=== PATIENT | male | born 1970 | race Caucasian/White ===

== ENCOUNTER 2017-11-15 17:54 | Inpatient (IN) | payer MEDICARE, OTHER ==
[~2017-11-15] VITALS: Ht 177.8 cm; Wt 82.5 kg
[~2017-11-15 17:54] MED LIST: ALBU6.7H INH; ALPR-624 PO; CARV25TA PO; CINA60TA PO; DARB10SY IV; DOXE1CAP2 IV; DULO30CA51 PO; FLUT1DIS4 INH; FURO80TA87 PO; HYDR-4069 PO; HYDR-565 PO; IRON100V2 IV; PRED5TAB PO; SEVE800T8 PO; TACR0.5C20 PO
[2017-11-15] MEDS ORDERED: HYDROcodone/acetaminophen 5mg/325mg tablet PO ONE (19:40)
[2017-11-15 19:46] LABS: BASOPHILS % (AUTO) 0.2 % (0-1); EOSINOPHILS # (AUTO) 0.2 X10'3 (0-0.9); EOSINOPHILS % (AUTO) 1.1 % (0-6); HEMATOCRIT 40.6 % (42.0-52.0); HEMOGLOBIN 13.1 g/dl (14.0-17.9); LYMPHOCYTES # (AUTO) 1.1 X10'3 (1.1-4.8); MEAN CORPUSCULAR HGB CONC 32.4 % (33.0-36.5); MEAN CORPUSCULAR VOLUME 95.7 FL (78-98); MONOCYTES # (AUTO) 0.8 X10'3 (0-0.9); MONOCYTES % (AUTO) 5.2 % (2-12); NEUTROPHILS # (AUTO) 13.1 X10'3 (1.8-7.7); NEUTROPHILS % (AUTO) 86.5 % (42-75); PLATELET COUNT 208 X10'3 (140-440); RED BLOOD COUNT 4.24 X10'6 (4.70-6.10); RED CELL DISTRIBUTION WIDTH 18.9 % (11.5-14.5); WHITE BLOOD COUNT 15.2 X10'3 (4.5-11.0)
[2017-11-15 20:01] LABS: ALANINE AMINOTRANSFERASE 19 U/L (12-78); ALBUMIN 3.5 G/DL (3.4-5.0); ALBUMIN/GLOBULIN RATIO 0.7 (1.1-1.5); ALKALINE PHOSPHATASE 237 IU/L (46-116); ANION GAP 11 (8-16); ASPARTATE AMINO TRANSFERASE 19 U/L (10-37); BILIRUBIN,TOTAL 1.4 MG/DL (0.1-1.0); BLOOD UREA NITROGEN 51 MG/DL (7-18); BUN/CREATININE RATIO 7.6 (5.4-32.0); CALCIUM 8.8 MG/DL (8.5-10.1); CHLORIDE 97 MMOL/L (99-107); GLUCOSE 118 MG/DL (70-104); POTASSIUM 4.6 MMOL/L (3.5-5.1); SODIUM 138 MMOL/L (135-145); TOTAL CARBON DIOXIDE 29.8 MMOL/L (24-32); TOTAL PROTEIN 8.2 G/DL (6.4-8.2); eGFR 9 ML/MIN
[2017-11-15] MEDS ORDERED: levoFLOXACIN-Levaquin 500mg/D5 100 ML IV ONE (20:20)
[2017-11-15 20:38] LABS: CLARITY,URINE CLEAR (Clear); COLOR,URINE YELLOW (Yellow); GLUCOSE, URINE 100 mg/dl (Neg); KETONES,URINE NEGATIVE (Neg); LEUKOCYTE ESTERASE ,URINE NEGATIVE (Neg); NITRITES, URINE NEGATIVE (Neg); OCCULT BLOOD,URINE SMALL (Neg); PH,URINE 8.5 (4.8-8.0); PROTEIN,URINE >=300 mg/dl (Neg); UROBILINOGEN,URINE 0.2 E.U/dL (0.2-1.0)
[2017-11-15 20:45] LABS: URINE AMPHETAMINE SCREEN NEGATIVE (Neg); URINE BARBITUATE SCREEN NEGATIVE (Neg); URINE BENZODIAZEPINES SCREEN POSITIVE (Neg); URINE CANNABINOID SCREEN NEGATIVE (Neg); URINE COCAINE SCREEN NEGATIVE (Neg); URINE METHADONE SCREEN NEGATIVE (Neg); URINE OPIATE SCREEN POSITIVE (Neg); URINE PHENCYCLIDINE SCREEN NEGATIVE (Neg)
[2017-11-15 20:46] LABS: UA COLLECTION TYPE CLN CATCH MIDSTREAM
[2017-11-15 20:47] LABS: BACTERIA,URINE FEW /HPF (Neg); RBC,URINE 0-2 /HPF (0-2); SQUAMOUS EPITHELIAL CELL,UR FEW /LPF (FEW); WBC,URINE 0-4 /HPF (0-4)
[2017-11-15] MEDS ORDERED: ondansetron/PF 4mg/2ml inj IV ONE (21:15)
[2017-11-15] MEDS ORDERED: levoFLOXACIN-Levaquin 500mg/D5 100 ML IV STA (21:15)
[2017-11-15] MEDS ORDERED: HYDROmorphone 1 mg/ml syringe IV PRN (22:50)
[2017-11-15] MEDS ORDERED: vancomycin/NS 1 GM ADD-VANTAGE 250 ML IV STA (22:50)
[2017-11-15] MEDS: piperacillin-tazo 2.25gm/50ml 50 ML IV SCH (23:37)
[2017-11-16] MEDS ORDERED: ondansetron/PF 4mg/2ml inj IV ONE (01:05)
[2017-11-16] MEDS ORDERED: [UNRECOGNIZED DRUG - OTHER] IV SCH (03:50)
[2017-11-16] MEDS ORDERED: DOXERCALCIFEROL 1 MCG IV SCH (03:50)
[2017-11-16] MEDS ORDERED: DARBEPOETIN ALFA IV SCH (03:50)
[2017-11-16] MEDS ORDERED: IRON SUCROSE COMPLEX IV SCH (03:50)
[2017-11-16] MEDS ORDERED: COU3T PO (04:36)
[2017-11-16] MEDS ORDERED: MIDO2.5T14 PO (04:36)
[2017-11-16] MEDS ORDERED: ONDA4TAB12 PO (04:36)
[2017-11-16] MEDS ORDERED: ATOR40TA72 (04:36)
[2017-11-16] MEDS ORDERED: CLOP75TA35 PO (04:36)
[2017-11-16] MEDS ORDERED: HYDROmorphone inj. 0.5 MG/0.5 ML DISP.SYRIN ONE (04:44)
[2017-11-16 06:52] LABS: BASOPHILS % (AUTO) 0.3 % (0-1); EOSINOPHILS # (AUTO) 0.2 X10'3 (0-0.9); EOSINOPHILS % (AUTO) 1.4 % (0-6); HEMATOCRIT 36.7 % (42.0-52.0); HEMOGLOBIN 12.1 g/dl (14.0-17.9); LYMPHOCYTES # (AUTO) 1.6 X10'3 (1.1-4.8); LYMPHOCYTES % (AUTO) 12.6 % (21-51); MEAN CORPUSCULAR HEMOGLOBIN 31.6 PG (27.0-31.0); MEAN CORPUSCULAR VOLUME 95.8 FL (78-98); MEAN PLATELET VOLUME 7.8 FL (7.4-10.4); MONOCYTES % (AUTO) 7.6 % (2-12); NEUTROPHILS # (AUTO) 10.2 X10'3 (1.8-7.7); NEUTROPHILS % (AUTO) 78.1 % (42-75); PLATELET COUNT 160 X10'3 (140-440); RED BLOOD COUNT 3.84 X10'6 (4.70-6.10); RED CELL DISTRIBUTION WIDTH 17.9 % (11.5-14.5)
[2017-11-16 07:03] LABS: INR 1.5 INR; PARTIAL THROMBOPLASTIN TIME 34 SECONDS (22-32); PROTHROMBIN TIME 15.7 SECONDS (9.0-12.0)
[2017-11-16 07:10] LABS: ALANINE AMINOTRANSFERASE 18 U/L (12-78); ALBUMIN 3.1 G/DL (3.4-5.0); ALBUMIN/GLOBULIN RATIO 0.7 (1.1-1.5); ALKALINE PHOSPHATASE 205 IU/L (46-116); ANION GAP 13 (8-16); ASPARTATE AMINO TRANSFERASE 17 U/L (10-37); BILIRUBIN,TOTAL 1.5 MG/DL (0.1-1.0); BLOOD UREA NITROGEN 57 MG/DL (7-18); BUN/CREATININE RATIO 7.9 (5.4-32.0); CALCIUM 8.6 MG/DL (8.5-10.1); CHLORIDE 97 MMOL/L (99-107); GLUCOSE 100 MG/DL (70-104); MAGNESIUM 1.7 MG/DL (1.5-2.4); PHOSPHORUS 6.7 MG/DL (2.3-4.5); POTASSIUM 4.7 MMOL/L (3.5-5.1); SODIUM 138 MMOL/L (135-145); TOTAL CARBON DIOXIDE 27.8 MMOL/L (24-32); TOTAL PROTEIN 7.5 G/DL (6.4-8.2); eGFR 8 ML/MIN
[2017-11-16 07:25] VITALS: BP 122/78
[2017-11-16] MEDS ORDERED: ALPRAZolam 0.5mg tablet PO SCH (08:00)
[2017-11-16] MEDS: ondansetron/PF 4mg/2ml inj IV PRN (09:02)
[2017-11-16] MEDS: cinacalcet 30mg tablet PO SCH (09:55)
[2017-11-16] MEDS: carVEDilol 12.5mg tablet PO SCH ×2 (09:58→19:31)
[2017-11-16] MEDS: furosemide 40mg tablet PO SCH ×3 (09:59→19:40)
[2017-11-16] MEDS: predniSONE 5mg tablet PO SCH (10:00)
[2017-11-16] MEDS: tacrolimus anhydrous 0.5mg capsule PO SCH ×3 (10:01→19:36)
[2017-11-16] MEDS: sevelamer carbonate 800mg tablet PO SCH ×3 (10:02→19:01)
[2017-11-16] MEDS: heparin, porcine 5000 units/ml vial SQ SCH ×2 (10:07→19:35)
[2017-11-16] MEDS: HYDROcodone/acetaminophen 10/325mg tab PO PRN (10:08)
[2017-11-16] MEDS: piperacillin-tazo 2.25gm/50ml 50 ML IV SCH ×4 (10:24→23:20)
[2017-11-16] MEDS: hydrALAZINE 25 MG tablet PO SCH ×3 (10:24→19:37)
[2017-11-16 11:00] VITALS: BP 109/70
[2017-11-16] MEDS: duloxetine 30mg CAPSULE.DR PO SCH (12:21)
[2017-11-16] MEDS ORDERED: ALPRAZolam 0.5mg tablet PO PRN (13:33)
[2017-11-16 15:00] VITALS: BP 91/55
[2017-11-16 18:50] VITALS: BP 92/55
[2017-11-16 23:00] VITALS: BP 88/55
[2017-11-17 02:00] VITALS: BP 93/62
[2017-11-17] MEDS: piperacillin-tazo 2.25gm/50ml 50 ML IV SCH ×3 (05:32→20:00)
[2017-11-17 05:33] LABS: BASOPHILS % (AUTO) 0.2 % (0-1); EOSINOPHILS # (AUTO) 0.2 X10'3 (0-0.9); EOSINOPHILS % (AUTO) 1.6 % (0-6); HEMATOCRIT 34.8 % (42.0-52.0); HEMOGLOBIN 11.4 g/dl (14.0-17.9); LYMPHOCYTES # (AUTO) 0.8 X10'3 (1.1-4.8); LYMPHOCYTES % (AUTO) 8.4 % (21-51); MEAN CORPUSCULAR HGB CONC 32.7 % (33.0-36.5); MEAN CORPUSCULAR VOLUME 94.6 FL (78-98); MEAN PLATELET VOLUME 8.2 FL (7.4-10.4); MONOCYTES # (AUTO) 0.6 X10'3 (0-0.9); MONOCYTES % (AUTO) 6.5 % (2-12); NEUTROPHILS # (AUTO) 8.1 X10'3 (1.8-7.7); NEUTROPHILS % (AUTO) 83.3 % (42-75); PLATELET COUNT 152 X10'3 (140-440); RED BLOOD COUNT 3.68 X10'6 (4.70-6.10); RED CELL DISTRIBUTION WIDTH 18.3 % (11.5-14.5); WHITE BLOOD COUNT 9.7 X10'3 (4.5-11.0)
[2017-11-17 05:49] LABS: INR 1.5 INR; PARTIAL THROMBOPLASTIN TIME 34 SECONDS (22-32); PROTHROMBIN TIME 15.8 SECONDS (9.0-12.0)
[2017-11-17 06:00] VITALS: BP 96/65
[2017-11-17 06:01] LABS: ALANINE AMINOTRANSFERASE 15 U/L (12-78); ALBUMIN 2.3 G/DL (3.4-5.0); ALBUMIN/GLOBULIN RATIO 0.6 (1.1-1.5); ALKALINE PHOSPHATASE 148 IU/L (46-116); ANION GAP 14 (8-16); ASPARTATE AMINO TRANSFERASE 16 U/L (10-37); BILIRUBIN,TOTAL 0.9 MG/DL (0.1-1.0); BLOOD UREA NITROGEN 83 MG/DL (7-18); BUN/CREATININE RATIO 9.5 (5.4-32.0); CALCIUM 7.6 MG/DL (8.5-10.1); CHLORIDE 97 MMOL/L (99-107); GLUCOSE 130 MG/DL (70-104); MAGNESIUM 1.6 MG/DL (1.5-2.4); PHOSPHORUS 8.3 MG/DL (2.3-4.5); SODIUM 138 MMOL/L (135-145); TOTAL CARBON DIOXIDE 27.2 MMOL/L (24-32); TOTAL PROTEIN 6.1 G/DL (6.4-8.2); eGFR 7 ML/MIN
[2017-11-17] MEDS: cinacalcet 30mg tablet PO SCH (07:00)
[2017-11-17] MEDS ORDERED: LIDOcaine 1% (10mg/ml) 2ml vial SQ ONE (07:00)
[2017-11-17] MEDS: hydrALAZINE 25 MG tablet PO SCH ×2 (07:29→13:00)
[2017-11-17] MEDS: carVEDilol 12.5mg tablet PO SCH ×2 (07:29→20:00)
[2017-11-17] MEDS: duloxetine 30mg CAPSULE.DR PO SCH (07:30)
[2017-11-17] MEDS: clopidogrel 75mg tablet PO SCH (07:31)
[2017-11-17] MEDS: furosemide 40mg tablet PO SCH ×3 (07:31→21:00)
[2017-11-17] MEDS: predniSONE 5mg tablet PO SCH (07:33)
[2017-11-17] MEDS: heparin, porcine 5000 units/ml vial SQ SCH ×2 (07:34→20:00)
[2017-11-17] MEDS: sevelamer carbonate 800mg tablet PO SCH ×3 (07:34→18:42)
[2017-11-17] MEDS: HYDROcodone/acetaminophen 10/325mg tab PO PRN ×2 (07:35→15:54)
[2017-11-17] MEDS: tacrolimus anhydrous 0.5mg capsule PO SCH (07:38)
[2017-11-17] MEDS ORDERED: heparin 1,000 units/ml 10ml inj IV ONE (08:00)
[2017-11-17] MEDS ORDERED: heparin 1,000unit/ml 10ml vial 10 ML IV ONE (08:00)
[2017-11-17] MEDS ORDERED: albumin (human) 25% 100ml IV 100 ML IV PRN (08:00)
[2017-11-17 11:00] VITALS: BP 102/68
[2017-11-17 15:00] VITALS: BP 104/67
[2017-11-17] MEDS: lactobacillus rhamnosus 10,000 MMU CELLS/CAPSULE PO SCH (17:34)
[2017-11-17 18:00] VITALS: BP 121/85
[2017-11-17] MEDS: ondansetron/PF 4mg/2ml inj IV PRN (20:13)
[2017-11-17] MEDS ORDERED: warfarin 3mg tablet PO SCH (21:00)
[2017-11-17 22:00] VITALS: BP 119/71
[2017-11-18 02:00] VITALS: BP 121/94
[2017-11-18] MEDS: piperacillin-tazo 2.25gm/50ml 50 ML IV SCH ×4 (02:00→14:00)
[2017-11-18 06:00] VITALS: BP 116/83
[2017-11-18 06:03] LABS: BASOPHILS % (AUTO) 0.1 % (0-1); EOSINOPHILS # (AUTO) 0.2 X10'3 (0-0.9); EOSINOPHILS % (AUTO) 2.3 % (0-6); HEMATOCRIT 35.6 % (42.0-52.0); HEMOGLOBIN 11.9 g/dl (14.0-17.9); LYMPHOCYTES % (AUTO) 12.6 % (21-51); MEAN CORPUSCULAR HEMOGLOBIN 31.3 PG (27.0-31.0); MEAN CORPUSCULAR HGB CONC 33.4 % (33.0-36.5); MEAN CORPUSCULAR VOLUME 93.8 FL (78-98); MEAN PLATELET VOLUME 7.8 FL (7.4-10.4); MONOCYTES # (AUTO) 0.5 X10'3 (0-0.9); MONOCYTES % (AUTO) 6.3 % (2-12); NEUTROPHILS # (AUTO) 6.3 X10'3 (1.8-7.7); NEUTROPHILS % (AUTO) 78.7 % (42-75); PLATELET COUNT 184 X10'3 (140-440); RED BLOOD COUNT 3.79 X10'6 (4.70-6.10); RED CELL DISTRIBUTION WIDTH 17.9 % (11.5-14.5)
[2017-11-18 06:20] LABS: INR 1.5 INR; PARTIAL THROMBOPLASTIN TIME 33 SECONDS (22-32); PROTHROMBIN TIME 14.9 SECONDS (9.0-12.0)
[2017-11-18 06:28] LABS: ALANINE AMINOTRANSFERASE 17 U/L (12-78); ALBUMIN 2.5 G/DL (3.4-5.0); ALBUMIN/GLOBULIN RATIO 0.6 (1.1-1.5); ALKALINE PHOSPHATASE 167 IU/L (46-116); ANION GAP 14 (8-16); ASPARTATE AMINO TRANSFERASE 16 U/L (10-37); BILIRUBIN,TOTAL 0.8 MG/DL (0.1-1.0); BLOOD UREA NITROGEN 48 MG/DL (7-18); BUN/CREATININE RATIO 7.4 (5.4-32.0); CALCIUM 7.9 MG/DL (8.5-10.1); CHLORIDE 99 MMOL/L (99-107); GLUCOSE 114 MG/DL (70-104); MAGNESIUM 1.8 MG/DL (1.5-2.4); PHOSPHORUS 6.2 MG/DL (2.3-4.5); SODIUM 141 MMOL/L (135-145); TOTAL CARBON DIOXIDE 28.2 MMOL/L (24-32); TOTAL PROTEIN 6.5 G/DL (6.4-8.2); eGFR 9 ML/MIN
[2017-11-18] MEDS: cinacalcet 30mg tablet PO SCH (07:00)
[2017-11-18] MEDS: duloxetine 30mg CAPSULE.DR PO SCH (07:38)
[2017-11-18] MEDS: carVEDilol 12.5mg tablet PO SCH (07:39)
[2017-11-18] MEDS: furosemide 40mg tablet PO SCH ×2 (07:39→12:46)
[2017-11-18] MEDS: predniSONE 5mg tablet PO SCH (07:40)
[2017-11-18] MEDS: lactobacillus rhamnosus 10,000 MMU CELLS/CAPSULE PO SCH (07:40)
[2017-11-18] MEDS: clopidogrel 75mg tablet PO SCH (07:41)
[2017-11-18] MEDS: heparin, porcine 5000 units/ml vial SQ SCH (07:41)
[2017-11-18] MEDS: sevelamer carbonate 800mg tablet PO SCH ×2 (07:43→12:46)
[2017-11-18 07:52] VITALS: BP 108/74
[2017-11-18] MEDS ORDERED: tacrolimus anhydrous 0.5mg capsule PO SCH (08:00)
[2017-11-18 11:00] VITALS: BP 99/68
[2017-11-18 15:00] VITALS: BP 106/63
== END 2017-11-18 16:40 | disposition home or self-care (01) | DRG 871 ==
LOC: ER 17:54 → ED HOLD 22:50 → PCU 3S 11-16 07:15
PROVIDERS: ATTEND Internal Medicine Critical Care Medicine
PROC: 5A1D70Z Performance of Urinary Filtration, Intermittent, Less than 6 Hours Per Day (ICD-10-PCS; principal; 2017-11-17)
DX: A41.9 Sepsis, unspecified organism (principal); J18.1 Lobar pneumonia, unspecified organism; I13.2 Hypertensive heart and chronic kidney disease with heart failure and with stage 5 chronic kidney disease, or end stage renal disease; N18.6 End stage renal disease; I42.9 Cardiomyopathy, unspecified; E22.2 Syndrome of inappropriate secretion of antidiuretic hormone; I50.22 Chronic systolic (congestive) heart failure; I48.0 Paroxysmal atrial fibrillation; Q61.3 Polycystic kidney, unspecified; Q44.6 Cystic disease of liver; J44.0 Chronic obstructive pulmonary disease with (acute) lower respiratory infection; Z94.0 Kidney transplant status; L03.114 Cellulitis of left upper limb; G89.29 Other chronic pain; I25.10 Atherosclerotic heart disease of native coronary artery without angina pectoris; F41.9 Anxiety disorder, unspecified; T22.012A Burn of unspecified degree of left forearm, initial encounter; Z95.5 Presence of coronary angioplasty implant and graft; Z99.2 Dependence on renal dialysis; Z79.899 Other long term (current) drug therapy; Z82.5 Family history of asthma and other chronic lower respiratory diseases
CPT/HCPCS: 36415; 71045; 80053; 80305; 81001; 82948; 83605; 83735; 83880; 84100; 85025; 85610; 85730; 87040; 87070; 93306; 94640; 94760; 96365; 96375; 97116; 97161; 97530; 99285; A6222; A6223; A6402; A6446; A6449; G0257; J1170; J1644; J1956; J2405; J2543; J3370; J3490; J7030; J7507; J7512

== ENCOUNTER 2018-01-03 18:08 | Inpatient (IN) | payer MEDICARE, MEDICAID ==
[~2018-01-03] VITALS: Ht 177.8 cm; Wt 85.0 kg
[~2018-01-03 18:08] MED LIST changes: +ATOR40TA72; +CLOP75TA35 PO; +COU3T PO; -FURO80TA87 PO; -HYDR-4069 PO; +MIDO2.5T14 PO; +ONDA4TAB12 PO
[2018-01-03] MEDS ORDERED: vancomycin inj 1,000 MG in normal saline 250ml IV soln 250 ML IV STA (19:14)
[2018-01-03] MEDS ORDERED: cefepime 1GM/NS ADD-VANTAGE 100 ML IV ONE (19:15)
[2018-01-03 19:22] LABS: BASOPHILS # (AUTO) 0.1 X10'3 (0-0.2); BASOPHILS % (AUTO) 0.8 % (0-1); EOSINOPHILS % (AUTO) 0 % (0-6); HEMATOCRIT 34.8 % (42.0-52.0); HEMOGLOBIN 11.5 g/dl (14.0-17.9); LYMPHOCYTES # (AUTO) 0.5 X10'3 (1.1-4.8); LYMPHOCYTES % (AUTO) 6.1 % (21-51); MEAN CORPUSCULAR HEMOGLOBIN 31.9 PG (27.0-31.0); MEAN CORPUSCULAR HGB CONC 32.9 % (33.0-36.5); MONOCYTES # (AUTO) 0.5 X10'3 (0-0.9); MONOCYTES % (AUTO) 6.5 % (2-12); NEUTROPHILS # (AUTO) 6.9 X10'3 (1.8-7.7); NEUTROPHILS % (AUTO) 86.6 % (42-75); PLATELET COUNT 142 X10'3 (140-440); RED BLOOD COUNT 3.59 X10'6 (4.70-6.10); RED CELL DISTRIBUTION WIDTH 17.8 % (11.5-14.5)
[2018-01-03 19:34] LABS: INR 1.8 INR; PROTHROMBIN TIME 18.3 SECONDS (9.0-12.0)
[2018-01-03 19:39] LABS: ALANINE AMINOTRANSFERASE 18 U/L (12-78); ALBUMIN 3.1 G/DL (3.4-5.0); ALBUMIN/GLOBULIN RATIO 0.6 (1.1-1.5); ALKALINE PHOSPHATASE 145 IU/L (46-116); ANION GAP 10 (8-16); ASPARTATE AMINO TRANSFERASE 20 U/L (10-37); BILIRUBIN,TOTAL 1.4 MG/DL (0.1-1.0); BLOOD UREA NITROGEN 38 MG/DL (7-18); BUN/CREATININE RATIO 5.4 (5.4-32.0); CALCIUM 8.2 MG/DL (8.5-10.1); CHLORIDE 98 MMOL/L (99-107); CREATININE 7.09 MG/DL (0.60-1.10); GLUCOSE 127 MG/DL (70-104); POTASSIUM 4.6 MMOL/L (3.5-5.1); SODIUM 136 MMOL/L (135-145); TOTAL CARBON DIOXIDE 28.4 MMOL/L (24-32); TOTAL PROTEIN 7.9 G/DL (6.4-8.2); eGFR 8 ML/MIN
[2018-01-03] MEDS ORDERED: vancomycin/NS 1 GM ADD-VANTAGE 250 ML IV ONE (19:45)
[2018-01-03] MEDS ORDERED: mag hydrox/Alum hydrox/simeth 30ml oral suspension PO PRN (20:30)
[2018-01-03] MEDS ORDERED: ondansetron/PF 4mg/2ml inj IV PRN (20:30)
[2018-01-03] MEDS ORDERED: acetaminophen 325mg tablet PO PRN ×2 (20:30)
[2018-01-03] MEDS ORDERED: magnesium hydroxide 30ml (MOM) UD suspension PO PRN (20:30)
[2018-01-03] MEDS ORDERED: HYDROcodone/acetaminophen 5mg/325mg tablet PO PRN (20:30)
[2018-01-03] MEDS ORDERED: [UNRECOGNIZED DRUG - OTHER] IV SCH (20:40)
[2018-01-03] MEDS ORDERED: IRON SUCROSE COMPLEX IV SCH (20:40)
[2018-01-03] MEDS ORDERED: DOXERCALCIFEROL 1 MCG IV SCH (20:40)
[2018-01-03] MEDS ORDERED: DARBEPOETIN ALFA IV SCH (20:40)
[2018-01-03] MEDS: normal saline 1000ml 1,000 ML IV SCH (20:50)
[2018-01-03] MEDS ORDERED: albuterol 2.5 MG/3 ML nebule NEB PRN (20:55)
[2018-01-03] MEDS: HYDROcodone/acetaminophen 10/325mg tab PO PRN (23:36)
[2018-01-03] MEDS: midodrine tablet 2.5 MG TABLET PO SCH (23:36)
[2018-01-04] VITALS: BP 108/70
[2018-01-04] MEDS: normal saline 1000ml 1,000 ML IV SCH ×3 (01:35→15:12)
[2018-01-04] MEDS ORDERED: clindamycin 600mg/D5W 50ml 50 ML IV SCH (02:00)
[2018-01-04 05:42] LABS: BASOPHILS % (AUTO) 0.3 % (0-1); EOSINOPHILS # (AUTO) 0.1 X10'3 (0-0.9); EOSINOPHILS % (AUTO) 1.9 % (0-6); HEMATOCRIT 32.8 % (42.0-52.0); HEMOGLOBIN 10.6 g/dl (14.0-17.9); LYMPHOCYTES # (AUTO) 0.9 X10'3 (1.1-4.8); LYMPHOCYTES % (AUTO) 12.8 % (21-51); MEAN CORPUSCULAR HEMOGLOBIN 31.9 PG (27.0-31.0); MEAN CORPUSCULAR HGB CONC 32.3 % (33.0-36.5); MEAN CORPUSCULAR VOLUME 98.6 FL (78-98); MEAN PLATELET VOLUME 8.3 FL (7.4-10.4); MONOCYTES # (AUTO) 0.5 X10'3 (0-0.9); MONOCYTES % (AUTO) 7.8 % (2-12); NEUTROPHILS # (AUTO) 5.3 X10'3 (1.8-7.7); NEUTROPHILS % (AUTO) 77.2 % (42-75); PLATELET COUNT 130 X10'3 (140-440); RED BLOOD COUNT 3.33 X10'6 (4.70-6.10); RED CELL DISTRIBUTION WIDTH 18.3 % (11.5-14.5); WHITE BLOOD COUNT 6.9 X10'3 (4.5-11.0)
[2018-01-04 05:48] LABS: INR 1.8 INR; PROTHROMBIN TIME 18.7 SECONDS (9.0-12.0)
[2018-01-04 05:57] LABS: ALANINE AMINOTRANSFERASE 15 U/L (12-78); ALBUMIN 2.6 G/DL (3.4-5.0); ALBUMIN/GLOBULIN RATIO 0.6 (1.1-1.5); ALKALINE PHOSPHATASE 121 IU/L (46-116); ANION GAP 10 (8-16); ASPARTATE AMINO TRANSFERASE 17 U/L (10-37); BILIRUBIN,TOTAL 1.1 MG/DL (0.1-1.0); BLOOD UREA NITROGEN 43 MG/DL (7-18); BUN/CREATININE RATIO 5.7 (5.4-32.0); CALCIUM 7.8 MG/DL (8.5-10.1); CHLORIDE 100 MMOL/L (99-107); CREATININE 7.55 MG/DL (0.60-1.10); GLUCOSE 111 MG/DL (70-104); MAGNESIUM 1.8 MG/DL (1.5-2.4); POTASSIUM 4.1 MMOL/L (3.5-5.1); SODIUM 139 MMOL/L (135-145); TOTAL CARBON DIOXIDE 29.4 MMOL/L (24-32); TOTAL PROTEIN 6.7 G/DL (6.4-8.2); eGFR 8 ML/MIN
[2018-01-04] MEDS: cinacalcet 30mg tablet PO SCH ×2 (07:00→18:50)
[2018-01-04] MEDS: heparin 1,000 units/ml 10ml inj IV ONE (07:30)
[2018-01-04] MEDS: heparin 1,000unit/ml 10ml vial 10 ML IV ONE (07:30)
[2018-01-04] MEDS ORDERED: albumin (human) 25% 100ml IV 100 ML IV PRN (07:30)
[2018-01-04 07:50] VITALS: BP 109/70
[2018-01-04] MEDS: sevelamer carbonate 800mg tablet PO SCH ×3 (08:36→17:59)
[2018-01-04] MEDS: tacrolimus anhydrous 0.5mg capsule PO SCH (08:37)
[2018-01-04] MEDS: carVEDilol 12.5mg tablet PO SCH ×2 (08:38→20:00)
[2018-01-04] MEDS: duloxetine 30mg CAPSULE.DR PO SCH (08:38)
[2018-01-04] MEDS: clopidogrel 75mg tablet PO SCH (08:38)
[2018-01-04] MEDS: midodrine tablet 2.5 MG TABLET PO SCH ×3 (08:39→23:58)
[2018-01-04] MEDS: predniSONE 5mg tablet PO SCH (08:39)
[2018-01-04] MEDS: piperacillin-tazo 2.25gm/50ml 50 ML IV SCH ×3 (08:45→21:22)
[2018-01-04] MEDS ORDERED: LIDOcaine 1% (10mg/ml) 2ml vial SQ ONE (10:35)
[2018-01-04 12:06] VITALS: BP 98/60
[2018-01-04] MEDS: HYDROcodone/acetaminophen 10/325mg tab PO PRN (15:19)
[2018-01-04] MEDS ORDERED: SEVE800T8 PO (16:20)
[2018-01-04] MEDS ORDERED: FOLI0.8T19 PO (16:20)
[2018-01-04 20:00] VITALS: BP 100/64
[2018-01-04] MEDS: warfarin 3mg tablet PO SCH (21:22)
[2018-01-04] MEDS: lactobacillus rhamnosus 10,000 MMU CELLS/CAPSULE PO SCH (21:22)
[2018-01-05] VITALS: BP 102/76
[2018-01-05] MEDS: piperacillin-tazo 2.25gm/50ml 50 ML IV SCH ×4 (02:18→20:39)
[2018-01-05] MEDS: VANCOMYCIN LEVEL IV SCH (03:51)
[2018-01-05 05:33] LABS: BASOPHILS % (AUTO) 0.3 % (0-1); EOSINOPHILS # (AUTO) 0.2 X10'3 (0-0.9); HEMATOCRIT 35.5 % (42.0-52.0); HEMOGLOBIN 11.8 g/dl (14.0-17.9); LYMPHOCYTES # (AUTO) 0.8 X10'3 (1.1-4.8); LYMPHOCYTES % (AUTO) 11.3 % (21-51); MEAN CORPUSCULAR HEMOGLOBIN 32.2 PG (27.0-31.0); MEAN CORPUSCULAR HGB CONC 33.1 % (33.0-36.5); MEAN CORPUSCULAR VOLUME 97.3 FL (78-98); MEAN PLATELET VOLUME 7.9 FL (7.4-10.4); MONOCYTES # (AUTO) 0.6 X10'3 (0-0.9); NEUTROPHILS # (AUTO) 5.8 X10'3 (1.8-7.7); NEUTROPHILS % (AUTO) 77.4 % (42-75); PLATELET COUNT 176 X10'3 (140-440); RED BLOOD COUNT 3.65 X10'6 (4.70-6.10); RED CELL DISTRIBUTION WIDTH 18.2 % (11.5-14.5); WHITE BLOOD COUNT 7.5 X10'3 (4.5-11.0)
[2018-01-05 05:43] LABS: INR 1.9 INR; PROTHROMBIN TIME 19.5 SECONDS (9.0-12.0)
[2018-01-05 05:51] LABS: ALANINE AMINOTRANSFERASE 17 U/L (12-78); ALBUMIN 2.6 G/DL (3.4-5.0); ALBUMIN/GLOBULIN RATIO 0.6 (1.1-1.5); ALKALINE PHOSPHATASE 127 IU/L (46-116); ANION GAP 9 (8-16); ASPARTATE AMINO TRANSFERASE 15 U/L (10-37); BILIRUBIN,TOTAL 1.1 MG/DL (0.1-1.0); BLOOD UREA NITROGEN 32 MG/DL (7-18); BUN/CREATININE RATIO 5.5 (5.4-32.0); CALCIUM 7.9 MG/DL (8.5-10.1); CHLORIDE 100 MMOL/L (99-107); CREATININE 5.77 MG/DL (0.60-1.10); GLUCOSE 77 MG/DL (70-104); MAGNESIUM 1.7 MG/DL (1.5-2.4); PHOSPHORUS 4.3 MG/DL (2.3-4.5); POTASSIUM 4.1 MMOL/L (3.5-5.1); SODIUM 140 MMOL/L (135-145); TOTAL CARBON DIOXIDE 30.7 MMOL/L (24-32); TOTAL PROTEIN 6.8 G/DL (6.4-8.2); VANCOMYCIN,RANDOM 10.2 UG/ML; eGFR 11 ML/MIN
[2018-01-05 07:00] VITALS: BP 130/79
[2018-01-05] MEDS ORDERED: vancomycin/NS 1 GM ADD-VANTAGE 250 ML IV PRN (08:00)
[2018-01-05] MEDS: lactobacillus rhamnosus 10,000 MMU CELLS/CAPSULE PO SCH ×2 (08:38→20:39)
[2018-01-05] MEDS: duloxetine 30mg CAPSULE.DR PO SCH (08:38)
[2018-01-05] MEDS: cinacalcet 30mg tablet PO SCH (08:38)
[2018-01-05] MEDS: carVEDilol 12.5mg tablet PO SCH ×2 (08:38→20:38)
[2018-01-05] MEDS: midodrine tablet 2.5 MG TABLET PO SCH ×2 (08:38→16:45)
[2018-01-05] MEDS: predniSONE 5mg tablet PO SCH (08:38)
[2018-01-05] MEDS: sevelamer carbonate 800mg tablet PO SCH ×3 (08:38→17:49)
[2018-01-05] MEDS: clopidogrel 75mg tablet PO SCH (08:38)
[2018-01-05] MEDS: HYDROcodone/acetaminophen 10/325mg tab PO PRN ×3 (08:44→16:46)
[2018-01-05] MEDS: tacrolimus anhydrous 0.5mg capsule PO SCH (09:15)
[2018-01-05 11:00] VITALS: BP 92/56
[2018-01-05 20:00] VITALS: BP 115/71
[2018-01-05] MEDS: warfarin 3mg tablet PO SCH (20:39)
[2018-01-06] VITALS: BP 110/75
[2018-01-06] MEDS: midodrine tablet 2.5 MG TABLET PO SCH ×3 (00:03→15:24)
[2018-01-06] MEDS: HYDROcodone/acetaminophen 10/325mg tab PO PRN ×3 (02:09→16:03)
[2018-01-06] MEDS: piperacillin-tazo 2.25gm/50ml 50 ML IV SCH ×3 (02:09→15:24)
[2018-01-06] MEDS: VANCOMYCIN LEVEL IV SCH (04:00)
[2018-01-06 05:56] LABS: BASOPHILS % (AUTO) 0.4 % (0-1); EOSINOPHILS # (AUTO) 0.4 X10'3 (0-0.9); EOSINOPHILS % (AUTO) 5.1 % (0-6); HEMATOCRIT 36.7 % (42.0-52.0); HEMOGLOBIN 12.5 g/dl (14.0-17.9); LYMPHOCYTES # (AUTO) 0.9 X10'3 (1.1-4.8); LYMPHOCYTES % (AUTO) 12.4 % (21-51); MEAN CORPUSCULAR HEMOGLOBIN 32.1 PG (27.0-31.0); MEAN CORPUSCULAR VOLUME 94.4 FL (78-98); MEAN PLATELET VOLUME 7.9 FL (7.4-10.4); MONOCYTES # (AUTO) 0.7 X10'3 (0-0.9); MONOCYTES % (AUTO) 8.9 % (2-12); NEUTROPHILS # (AUTO) 5.5 X10'3 (1.8-7.7); NEUTROPHILS % (AUTO) 73.2 % (42-75); PLATELET COUNT 212 X10'3 (140-440); RED BLOOD COUNT 3.89 X10'6 (4.70-6.10); RED CELL DISTRIBUTION WIDTH 18.3 % (11.5-14.5); WHITE BLOOD COUNT 7.5 X10'3 (4.5-11.0)
[2018-01-06 06:01] LABS: INR 2.5 INR
[2018-01-06 06:07] LABS: ALANINE AMINOTRANSFERASE 16 U/L (12-78); ALBUMIN 2.6 G/DL (3.4-5.0); ALBUMIN/GLOBULIN RATIO 0.6 (1.1-1.5); ALKALINE PHOSPHATASE 134 IU/L (46-116); ANION GAP 10 (8-16); ASPARTATE AMINO TRANSFERASE 15 U/L (10-37); BLOOD UREA NITROGEN 51 MG/DL (7-18); BUN/CREATININE RATIO 6.8 (5.4-32.0); CALCIUM 7.9 MG/DL (8.5-10.1); CHLORIDE 100 MMOL/L (99-107); CREATININE 7.55 MG/DL (0.60-1.10); GLUCOSE 89 MG/DL (70-104); MAGNESIUM 1.8 MG/DL (1.5-2.4); PHOSPHORUS 3.8 MG/DL (2.3-4.5); SODIUM 140 MMOL/L (135-145); TOTAL CARBON DIOXIDE 29.7 MMOL/L (24-32); TOTAL PROTEIN 7.1 G/DL (6.4-8.2); VANCOMYCIN,RANDOM 9.1 UG/ML; eGFR 8 ML/MIN
[2018-01-06 07:00] VITALS: BP 103/72
[2018-01-06] MEDS: cinacalcet 30mg tablet PO SCH (07:00)
[2018-01-06] MEDS ORDERED: heparin 1,000 units/ml 10ml inj IV ONE (08:00)
[2018-01-06] MEDS ORDERED: heparin 1,000unit/ml 10ml vial 10 ML IV ONE (08:00)
[2018-01-06] MEDS ORDERED: albumin (human) 25% 100ml IV 100 ML IV PRN (08:00)
[2018-01-06] MEDS ORDERED: vancomycin/NS 1 GM ADD-VANTAGE 250 ML IV ONE ×2 (08:35→14:00)
[2018-01-06] MEDS: carVEDilol 12.5mg tablet PO SCH (08:50)
[2018-01-06] MEDS: lactobacillus rhamnosus 10,000 MMU CELLS/CAPSULE PO SCH (08:52)
[2018-01-06] MEDS: duloxetine 30mg CAPSULE.DR PO SCH (08:52)
[2018-01-06] MEDS: sevelamer carbonate 800mg tablet PO SCH ×2 (08:53→13:41)
[2018-01-06] MEDS: tacrolimus anhydrous 0.5mg capsule PO SCH (08:53)
[2018-01-06] MEDS: clopidogrel 75mg tablet PO SCH (08:53)
[2018-01-06] MEDS: predniSONE 5mg tablet PO SCH (08:54)
[2018-01-06 09:35] VITALS: BP 121/81
[2018-01-06] MEDS ORDERED: LIDOcaine 1% (10mg/ml) 2ml vial SQ ONE (10:50)
[2018-01-06 11:00] VITALS: BP 121/80
[2018-01-06] MEDS ORDERED: warfarin 1mg tablet PO ONE (21:00)
== END 2018-01-06 18:00 | disposition home or self-care (01) | DRG 602 ==
LOC: ER 18:08 → ED HOLD 20:27 → MED 3N 23:47
PROVIDERS: ADMIT Internal Medicine Critical Care Medicine; ATTEND Internal Medicine Critical Care Medicine
PROC: 5A1D70Z Performance of Urinary Filtration, Intermittent, Less than 6 Hours Per Day (ICD-10-PCS; 2018-01-04)
PROC: 5A1D70Z Performance of Urinary Filtration, Intermittent, Less than 6 Hours Per Day (ICD-10-PCS; principal; 2018-01-06)
DX: L03.114 Cellulitis of left upper limb (principal); N18.6 End stage renal disease; I13.2 Hypertensive heart and chronic kidney disease with heart failure and with stage 5 chronic kidney disease, or end stage renal disease; T86.12 Kidney transplant failure; I42.9 Cardiomyopathy, unspecified; Q44.6 Cystic disease of liver; E66.9 Obesity, unspecified; I50.9 Heart failure, unspecified; F41.9 Anxiety disorder, unspecified; F17.210 Nicotine dependence, cigarettes, uncomplicated; Z99.2 Dependence on renal dialysis; Z79.01 Long term (current) use of anticoagulants; Z79.899 Other long term (current) drug therapy; Z68.26 Body mass index [BMI] 26.0-26.9, adult; Y83.0 Surgical operation with transplant of whole organ as the cause of abnormal reaction of the patient, or of later complication, without mention of misadventure at the time of the procedure
CPT/HCPCS: 36415; 80053; 80202; 83605; 83735; 84100; 85025; 85610; 87040; 87070; 93005; 93971; 94760; 99285; A4649; A6209; A6212; A6402; A6449; G0257; J0692; J1644; J2543; J3370; J3490; J7030; J7507; J7512; P9047

== ENCOUNTER 2018-03-09 08:07 | Emergency (ER) | payer MEDICARE, MEDICAID ==
[~2018-03-09] VITALS: Ht 177.8 cm; Wt 83.0 kg
[~2018-03-09 08:07] MED LIST changes: -ALBU6.7H INH; -CINA60TA PO; -FLUT1DIS4 INH; +FOLI0.8T19 PO; -ONDA4TAB12 PO
[2018-03-09 09:01] LABS: INR 2.8 INR; PROTHROMBIN TIME 28.1 SECONDS (9.0-12.0)
[2018-03-09 09:36] VITALS: BP 106/61
== END 2018-03-09 09:38 | disposition home or self-care (01) ==
LOC: ER 08:07
DX: S51.812A Laceration without foreign body of left forearm, initial encounter (principal); S09.90XA Unspecified injury of head, initial encounter; I11.0 Hypertensive heart disease with heart failure; I50.9 Heart failure, unspecified; I13.0 Hypertensive heart and chronic kidney disease with heart failure and stage 1 through stage 4 chronic kidney disease, or unspecified chronic kidney disease; N18.9 Chronic kidney disease, unspecified; F17.210 Nicotine dependence, cigarettes, uncomplicated; Z94.0 Kidney transplant status; Z98.890 Other specified postprocedural states; Z79.899 Other long term (current) drug therapy; Z79.01 Long term (current) use of anticoagulants; W01.0XXA Fall on same level from slipping, tripping and stumbling without subsequent striking against object, initial encounter; Y93.89 Activity, other specified; Y92.89 Other specified places as the place of occurrence of the external cause; Y99.8 Other external cause status
CPT/HCPCS: 12002; 36415; 70450; 85610; 99285; A6446; A6449

== ENCOUNTER 2018-06-02 09:08 | Day surgery (SDC) | payer MEDICARE, MEDICAID ==
[~2018-06-02] VITALS: Ht 177.8 cm; Wt 85.3 kg
[2018-06-02] VITALS (15 sets, daily range): BP systolic 100–138; BP diastolic 67–102
[2018-06-02] MEDS ORDERED: normal saline 1000ml 1,000 ML IV PRN (09:30)
[2018-06-02 09:49] LABS: INR 1.8 INR; PROTHROMBIN TIME 18.1 SECONDS (9.0-12.0)
[2018-06-02] MEDS: LIDOcaine 1%/PF 5ML 10 MG/ML VIAL SQ ONE (10:34)
[2018-06-02] MEDS: albumin (human) 25% 100 ML IV solution IV PRN (11:33)
== END 2018-06-02 11:30 | disposition home or self-care (01) ==
LOC: SSTAY O 09:08
PROVIDERS: ATTEND Radiology Diagnostic Radiology
DX: R18.8 Other ascites (principal); I13.2 Hypertensive heart and chronic kidney disease with heart failure and with stage 5 chronic kidney disease, or end stage renal disease; N18.6 End stage renal disease; I50.9 Heart failure, unspecified; E22.2 Syndrome of inappropriate secretion of antidiuretic hormone; F41.8 Other specified anxiety disorders; I42.8 Other cardiomyopathies; F17.210 Nicotine dependence, cigarettes, uncomplicated; G89.29 Other chronic pain; Z99.81 Dependence on supplemental oxygen; Z95.5 Presence of coronary angioplasty implant and graft; Z90.49 Acquired absence of other specified parts of digestive tract; Z90.5 Acquired absence of kidney; Z79.01 Long term (current) use of anticoagulants; Z79.891 Long term (current) use of opiate analgesic; Z87.442 Personal history of urinary calculi; Z89.021 Acquired absence of right finger(s); Z99.2 Dependence on renal dialysis; Z94.0 Kidney transplant status; Z86.14 Personal history of Methicillin resistant Staphylococcus aureus infection; Z79.899 Other long term (current) drug therapy; Z98.890 Other specified postprocedural states; Z83.6 Family history of other diseases of the respiratory system; Z80.9 Family history of malignant neoplasm, unspecified
CPT/HCPCS: 36415; 49083; 85610; A6257; J2001; J7030

== ENCOUNTER 2018-10-01 08:25 | Day surgery (SDC) | payer MEDICARE, MEDICAID ==
[~2018-10-01] VITALS: Ht 157.5 cm; Wt 85.0 kg
[~2018-10-01 08:25] MED LIST changes: -DARB10SY IV; +HYDR-4353 PO; -HYDR-565 PO; +LIDOcaine 1% 30ml preserv. free vial SQ STA
[2018-10-01] MEDS ORDERED: albumin (human) 25% 100 ML IV solution IV PRN (08:45)
[2018-10-01] MEDS ORDERED: normal saline 1000ml 1,000 ML IV PRN (08:45)
[2018-10-01 08:50] VITALS: BP 120/72
[2018-10-01 10:34] LABS: INR 2.8 INR; PROTHROMBIN TIME 27.1 SECONDS (9.0-12.0)
== END 2018-10-01 10:40 | disposition home or self-care (01) ==
LOC: SSTAY O 08:25
PROVIDERS: ATTEND Radiology Diagnostic Radiology
DX: R18.8 Other ascites (principal); Z53.8 Procedure and treatment not carried out for other reasons; I13.2 Hypertensive heart and chronic kidney disease with heart failure and with stage 5 chronic kidney disease, or end stage renal disease; N18.6 End stage renal disease; I50.9 Heart failure, unspecified; I42.8 Other cardiomyopathies; F41.8 Other specified anxiety disorders; E22.2 Syndrome of inappropriate secretion of antidiuretic hormone; Q44.6 Cystic disease of liver; G89.29 Other chronic pain; Z89.021 Acquired absence of right finger(s); Z86.14 Personal history of Methicillin resistant Staphylococcus aureus infection; Z95.5 Presence of coronary angioplasty implant and graft; Z87.891 Personal history of nicotine dependence; Z99.81 Dependence on supplemental oxygen; Z90.49 Acquired absence of other specified parts of digestive tract; Z99.2 Dependence on renal dialysis; Z87.442 Personal history of urinary calculi; Z90.5 Acquired absence of kidney; Z94.0 Kidney transplant status; Z79.01 Long term (current) use of anticoagulants; Z79.891 Long term (current) use of opiate analgesic; Z88.6 Allergy status to analgesic agent; Z88.5 Allergy status to narcotic agent; Z79.899 Other long term (current) drug therapy; Z98.890 Other specified postprocedural states; Z83.6 Family history of other diseases of the respiratory system; Z80.9 Family history of malignant neoplasm, unspecified
CPT/HCPCS: 36415; 85610; J3490; J7030

== ENCOUNTER 2018-10-05 15:24 | Emergency (ER) | payer MEDICARE, MEDICAID ==
[~2018-10-05] VITALS: Ht 177.8 cm; Wt 83.7 kg
[~2018-10-05 15:24] MED LIST changes: -LIDOcaine 1% 30ml preserv. free vial SQ STA; -MIDO2.5T14 PO
[2018-10-05] MEDS ORDERED: diltiazem 5mg/ml 5ml inj. IV ONE ×2 (15:40→16:20)
[2018-10-05] MEDS ORDERED: normal saline 1000ML IV soln IVB ONE (16:10)
[2018-10-05] MEDS ORDERED: ALPRAZolam 0.5mg tablet PO ONE (16:10)
[2018-10-05 16:12] LABS: HEMATOCRIT 33.3 % (42.0-52.0); HEMOGLOBIN 11.6 g/dl (14.0-17.9); MEAN CORPUSCULAR HEMOGLOBIN 33.1 PG (27.0-31.0); MEAN CORPUSCULAR HGB CONC 34.8 % (33.0-36.5); MEAN CORPUSCULAR VOLUME 95.1 FL (78-98); WHITE BLOOD COUNT 6.9 X10'3 (4.5-11.0)
[2018-10-05 16:13] LABS: BASOPHILS % (AUTO) 0.4 % (0-1); EOSINOPHILS % (AUTO) 0.3 % (0-6); LYMPHOCYTES # (AUTO) 0.6 X10'3 (1.1-4.8); LYMPHOCYTES % (AUTO) 9.1 % (21-51); MEAN PLATELET VOLUME 8.8 FL (7.4-10.4); MONOCYTES # (AUTO) 0.4 X10'3 (0-0.9); MONOCYTES % (AUTO) 6 % (2-12); NEUTROPHILS # (AUTO) 5.9 X10'3 (1.8-7.7); NEUTROPHILS % (AUTO) 84.2 % (42-75); PLATELET COUNT 153 X10'3 (140-440); RED CELL DISTRIBUTION WIDTH 15.8 % (11.5-14.5)
[2018-10-05 16:16] LABS: ALANINE AMINOTRANSFERASE 15 U/L (12-78); ALBUMIN 3.4 G/DL (3.4-5.0); ALBUMIN/GLOBULIN RATIO 0.7 (1.1-1.5); ALKALINE PHOSPHATASE 249 IU/L (46-116); ANION GAP 12 (8-16); ASPARTATE AMINO TRANSFERASE 17 U/L (10-37); BILIRUBIN,TOTAL 1.7 MG/DL (0.1-1.0); BLOOD UREA NITROGEN 41 MG/DL (7-18); BUN/CREATININE RATIO 6.8 (5.4-32.0); CALCIUM 8.9 MG/DL (8.5-10.1); CHLORIDE 95 MMOL/L (99-107); CREATININE 6.04 MG/DL (0.60-1.10); GLUCOSE 127 MG/DL (70-104); SODIUM 138 MMOL/L (135-145); TOTAL CARBON DIOXIDE 30.7 MMOL/L (24-32); eGFR 10 ML/MIN
[2018-10-05 16:25] LABS: MAGNESIUM 1.9 MG/DL (1.5-2.4)
[2018-10-05 17:15] VITALS: BP 133/75
== END 2018-10-05 17:17 | disposition home or self-care (01) ==
LOC: ER 15:25
DX: I13.2 Hypertensive heart and chronic kidney disease with heart failure and with stage 5 chronic kidney disease, or end stage renal disease (principal); N18.6 End stage renal disease; I50.9 Heart failure, unspecified; F41.9 Anxiety disorder, unspecified; I48.91 Unspecified atrial fibrillation; Z99.2 Dependence on renal dialysis; Z94.0 Kidney transplant status; Z98.890 Other specified postprocedural states; Z88.6 Allergy status to analgesic agent; Z88.5 Allergy status to narcotic agent; Z79.899 Other long term (current) drug therapy; Z79.01 Long term (current) use of anticoagulants
CPT/HCPCS: 36415; 71045; 80053; 83735; 83880; 84484; 85025; 93005; 96374; 99284; J7030; J3490

== ENCOUNTER 2018-10-09 16:42 | Emergency (ER) | payer MEDICARE, MEDICAID ==
[~2018-10-09] VITALS: Ht 185.4 cm; Wt 100.0 kg
[~2018-10-09 16:42] MED LIST changes: +NORepinephrine bitartrate 8 MG in NS 250 ML BAG (32 mcg/ml) IV ONE; +calcium chloride 100 MG/1 ML inj IV ONE; +epiNEPHrine 0.1mg/ml 10ml syringe ONE; +sodium bicarbonate (8.4%) 1 mEq/ml syringe ONE
[2018-10-09 17:00] LABS: ISTAT CREATININE 4.9 mg/dL (0.8-1.3); ISTAT HGB 11.9 g/dl (14.0-18.0); ISTAT IONIZED CALCIUM 1.15 mmol/L (1.03-1.32); ISTAT K 4.6 mmol/L (3.5-5.1); POC BUN/CREATININE RATIO 8.8 (5.4-32.0)
[2018-10-09] MEDS ORDERED: vasoPRESSIN 20 units/ml inj. IV ONE (17:25)
== END 2018-10-09 21:02 | disposition expired ==
LOC: ER 16:43
DX: I46.9 Cardiac arrest, cause unspecified (principal); I13.0 Hypertensive heart and chronic kidney disease with heart failure and stage 1 through stage 4 chronic kidney disease, or unspecified chronic kidney disease; N18.9 Chronic kidney disease, unspecified; I50.9 Heart failure, unspecified; F17.210 Nicotine dependence, cigarettes, uncomplicated; Z98.890 Other specified postprocedural states; Z94.0 Kidney transplant status; Z88.6 Allergy status to analgesic agent; Z88.5 Allergy status to narcotic agent; Z79.01 Long term (current) use of anticoagulants; Z79.899 Other long term (current) drug therapy
CPT/HCPCS: 31500; 36556; 80047; 82948; 92950; 94760; 99291; J0171; 94002; J3490